=== PATIENT | female | born 1985 | race Caucasian/White ===

== ENCOUNTER 2016-03-14 11:42 | Emergency (ER) | payer OTHER ==
[~2016-03-14] VITALS: Ht 149.9 cm; Wt 100.0 kg
[~2016-03-14 11:42] MED LIST: ADVAIR 100-501 EACH IH; ADVAIR 100/501 DISK IH; ADVAIR 250/501 DISK IH; ADVAIR 500/501 DISK IH; ADVIL200 MG PO; ALBUTEROL17 GM IH; AMBIEN10 M1 PO; AMBIEN10 MG PO; AMBIEN5 MG PO; ANTIVERT25 MG PO; ASPIR 8181 M1 PO; ASPIRIN EC325 MG PO; ATARAX,VISTARIL25 MG PO; ATARAX10 MG; AUGMENTIN875 MG PO; AZITHROMYCIN250 MG PO; Ascorbic Acid,Ester- PO; BENTYL; BENTYL10 MG PO; BUSPAR; BUSPAR10 MG PO; Buspar PO; CALAN120 MG PO; CATAPRES0.1 MG PO; CELEBREX100 MG PO; CHLORTHALIDONE25 MG PO; CITALOPRAM HBR20 M1 PO; CLARITIN10 M3 PO; CLONIDINE HCL0.1 MG PO; CYCLOBENZAPRINE10 MG PO; CYCLOBENZAPRINE5 M1; CYMBALTA20 MG PO; CYMBALTA60 MG PO; Calan PO; DELTASONE20 M1 PO; DESYREL100 MG; DESYREL100 MG PO; DEXILANT60 MG PO; DITROPAN; DITROPAN XL10 MG PO; DITROPAN XL15 MG PO; DITROPAN XL5 MG PO; DITROPAN5 MG; DITROPAN5 MG PO; DOXYCYCLINE HY100 MG PO; Desyrel PO; Ditropan PO; EFFEXOR; EFFEXOR XR37.5 MG PO; EFFEXOR37.5 MG PO; ELIMITE 5% CREA60 GM TP; ESCITALOPRAM OX10 MG PO; Effexor XR PO; FIORICET,ESG1 TABLET PO; FISH OIL; FISH OIL 1,0001 EAC8 PO; FISH OIL SOFTG1 EAC2 PO; FLEXERIL10 MG PO; FLONASE ALLERG9.9 ML BOTH NARES; FLONASE16 G1 BOTH NARES; FLONASE16 G1 NS; FLONASE16 GM NS; FLORASTOR250 MG PO; FLUOXETINE HCL10 MG PO; FLUOXETINE HCL20 M1 PO; FLUOXETINE HCL40 MG PO; FUROSEMIDE20 MG PO; Feosol PO; GABAPENTIN300 MG PO; GLUCOPHAGE500 MG PO; HYDROCHLOROTH12.5 M3 PO; HYDROCODON-ACE1 EAC7 PO; HYDROXYZINE HCL10 M1 PO; HYDROXYZINE HCL25 MG PO; HYDROXYZINE PAM25 MG PO; HYGROTON25 MG PO; IBUPROFEN600 MG PO; IMITREX; IMITREX100 MG PO; IMITREX4 MG/0.5 M SQ; IMITREX6 MG/0.52 SC; IRON PO; K-DUR20 MEQ PO; KEFLEX500 MG PO; KLOR-CON M2020 MEQ PO; KRISTALOSE10 GM PO; LANSOPRAZOLE30 MG PO; LASIX20 MG PO; LATUDA40 MG PO; LEVO-T25 MCG PO; LIDOCAINE700 MG TD; LISINOPRIL5 MG PO; LO-DOSE ASPIRIN81 M1 PO; MACROBID100 MG PO; MEDROL DOSEPAK4 MG PO; METFORMIN HCL500 MG PO; MOTRIN800 MG PO; MULTI VITAMIN1 EACH PO; MULTIVITAMIN1 EAC2 PO; MYRBETRIQ25 MG PO; NAPROSYN500 MG PO; NEURONTIN100 MG PO; NEURONTIN300 MG PO; NORCO 5/3251 TABLET PO; OMEPRAZOLE; OMEPRAZOLE20 M2 PO; OMEPRAZOLE20 MG PO; OMEPRAZOLE40 M1 PO; ORTHO CYCLEN1 TABLET PO; ORTHO-CYCLEN1 EACH PO; ORTHOCYCLINE PO; OXYBUTYNIN CHLO10 MG PO; OXYBUTYNIN CHLO15 MG PO; OXYCODONE HCL5 MG PO; Ortho Cyclen 28 PO; PERCOCET 5/31 TABLET PO; PERPHENAZINE2 MG PO; POTASSIUM CHLO10 ME4 PO; PRAVACHOL20 MG PO; PRAVACHOL40 MG PO; PRAVASTATIN SOD20 MG PO; PREDNISONE10 M1 PO; PREDNISONE10 MG PO; PREDNISONE20 MG PO; PREVACID30 MG PO; PREVIFEM1 EACH PO; PRILOSEC20 MG PO; PRILOSEC40 MG PO; PROMETHAZINE HC25 M1 PO; PROZAC40 MG PO; PriLOSEC PO; QUETIAPINE FUMA50 MG PO; REGLAN10 MG PO; RISPERDAL1 MG PO; SEROQUEL XR150 MG PO; SEROQUEL XR200 MG PO; SEROQUEL XR400 MG PO; SEROQUEL200 MG PO; SEROQUEL300 MG PO; SEROQUEL50 MG PO; SERTRALINE HCL50 MG PO; SINGULAIR10 MG PO; SPRINTEC1 EACH PO; SUMATRIPTAN SU100 MG PO; TESSALON PERLE100 MG PO; TOPAMAX; TOPAMAX50 MG PO; TRAZADONE; TRAZODONE HCL150 MG PO; TRI-PREVIFEM1 EACH PO; TRILAFON2 MG PO; TYLENOL WITH C1 EACH PO; Tylenol Regular Stre PO; ULTRAM50 MG PO; VALIUM5 MG PO; VENTOLIN HFA18 GM IH; VENTOLIN17 GM IH; VERAPAMIL; VERAPAMIL HCL120 M2 PO; VERAPAMIL HCL120 MG PO; VERAPAMIL HCL40 MG; VERAPAMIL HCL80 MG; VERAPAMIL HCL80 MG PO; VERELAN 120 MG120 MG PO; VIIBRYD10 MG PO; VIIBRYD40 MG PO; VITAMIN B12-FO1 EACH PO; VITAMIN C500 M1 PO; VITAMIN D250000 UNIT PO; ZANTAC150 MG PO; ZANTAC300 MG PO; ZITHROMAX Z-PA250 MG PO; ZITHROMAX250 MG PO; ZOFRAN ODT4 MG PO; ZOFRAN4 MG PO; ZOLOFT25 MG PO; ZOLOFT50 MG PO
[2016-03-14 13:15] LABS: HEMATOCRIT 33.4 % (36.0-46.0); MCH 23.8 PG (29.0-34.0); MCHC 32.3 G/DL (30.0-36.0); MCV 73.7 FL (83-99); MEAN PLAT.VOLUME 10.4 uM^3 (9.5-12.4); PLATELET COUNT 383 K/uL (156-360); RBC DIS.WIDTH-CV 14.2 % (11.8-14.6); RBC DIS.WIDTH-SD 37.7 % (39-53); RED BLOOD COUNT 4.53 M/uL (3.80-5.20); WHITE BLOOD COUNT 5.6 K/uL (4.1-10.2)
[2016-03-14 13:24] LABS: CHLORIDE 102 mEq/L (99-109); POTASSIUM 3.9 mEq/L (3.7-5.4); SODIUM 138 mEq/L (136-147)
[2016-03-14 13:25] LABS: GLUCOSE 170 mg/dL (70-99)
[2016-03-14 13:27] LABS: ANION GAP 12 MEQ/L (2-14)
[2016-03-14 13:29] LABS: GFR ESTIMATE (CALCULATED) > 59 mL/min/
[2016-03-14 13:30] LABS: UREA NITROGEN (BUN) 10 mg/dL (9-23)
[2016-03-14] MEDS ORDERED: PROAIR HFA8.5 GM IH (14:46)
[2016-03-14] MEDS ORDERED: ZITHROMAX500 MG PO (14:46)
[2016-03-14] MEDS ORDERED: ROBITUSSIN AC,T10 ML PO (14:46)
[2016-03-14 15:27] VITALS: BP 112/66
== END 2016-03-14 15:28 | disposition home or self-care (01) ==
LOC: EME 11:42
DX: J20.9 Acute bronchitis, unspecified (principal); J06.9 Acute upper respiratory infection, unspecified; J45.909 Unspecified asthma, uncomplicated; G89.29 Other chronic pain; E11.9 Type 2 diabetes mellitus without complications; E78.5 Hyperlipidemia, unspecified; I10 Essential (primary) hypertension; K21.9 Gastro-esophageal reflux disease without esophagitis; Z87.442 Personal history of urinary calculi; G80.9 Cerebral palsy, unspecified; Z87.891 Personal history of nicotine dependence
CPT/HCPCS: 71020; 80048; 85027; 94640; 99281; 99285; J7512

== ENCOUNTER 2016-04-05 01:32 | Emergency (ER) | payer OTHER ==
[~2016-04-05] VITALS: Ht 149.9 cm; Wt 102.8 kg
[~2016-04-05 01:32] MED LIST changes: +PROAIR HFA8.5 GM IH; +ROBITUSSIN AC,T10 ML PO; +ZITHROMAX500 MG PO
[2016-04-05 01:39] VITALS: BP 117/72
[2016-04-05] MEDS ORDERED: ULTRACET1 TABLET PO (02:14)
== END 2016-04-05 02:33 | disposition home or self-care (01) ==
LOC: EXP 01:32 → EME 01:32 → EXP 02:33
DX: G89.29 Other chronic pain (principal); M79.604 Pain in right leg; M79.605 Pain in left leg; M79.89 Other specified soft tissue disorders; I10 Essential (primary) hypertension; J45.909 Unspecified asthma, uncomplicated; Z79.82 Long term (current) use of aspirin
CPT/HCPCS: 99281; 99283

== ENCOUNTER 2016-04-21 03:42 | Emergency (ER) | payer OTHER ==
[~2016-04-21] VITALS: Ht 149.9 cm; Wt 102.6 kg
[~2016-04-21 03:42] MED LIST changes: +ULTRACET1 TABLET PO
[2016-04-21] MEDS ORDERED: FLEXERIL10 MG PO (04:27)
[2016-04-21] MEDS ORDERED: NORCO 5/3251 TABLET PO (04:27)
[2016-04-21 05:02] VITALS: BP 136/78
== END 2016-04-21 05:03 | disposition home or self-care (01) ==
LOC: EME 03:42
DX: S76.911A Strain of unspecified muscles, fascia and tendons at thigh level, right thigh, initial encounter (principal); S76.912A Strain of unspecified muscles, fascia and tendons at thigh level, left thigh, initial encounter; W05.0XXA Fall from non-moving wheelchair, initial encounter; G80.9 Cerebral palsy, unspecified; Z99.3 Dependence on wheelchair; I10 Essential (primary) hypertension; E78.5 Hyperlipidemia, unspecified; J45.909 Unspecified asthma, uncomplicated; Z79.82 Long term (current) use of aspirin
CPT/HCPCS: 99281; 99283

== ENCOUNTER 2016-05-08 23:22 | Inpatient (IN) | payer OTHER ==
[~2016-05-08] VITALS: Ht 149.9 cm; Wt 99.4 kg
[2016-05-09 00:13] LABS: HEMATOCRIT 32.7 % (36.0-46.0); MCH 23.7 PG (29.0-34.0); MCHC 31.5 G/DL (30.0-36.0); MCV 75.2 FL (83-99); MEAN PLAT.VOLUME 10.4 uM^3 (9.5-12.4); PLATELET COUNT 397 K/uL (156-360); RBC DIS.WIDTH-CV 15.6 % (11.8-14.6); RBC DIS.WIDTH-SD 41.7 % (39-53); RED BLOOD COUNT 4.35 M/uL (3.80-5.20); WHITE BLOOD COUNT 9.4 K/uL (4.1-10.2)
[2016-05-09 00:20] LABS: CHLORIDE 104 mEq/L (99-109); POTASSIUM 3.5 mEq/L (3.7-5.4); SODIUM 139 mEq/L (136-147)
[2016-05-09 00:23] LABS: GLUCOSE 198 mg/dL (70-99)
[2016-05-09 00:24] LABS: ANION GAP 9 MEQ/L (2-14)
[2016-05-09 00:25] LABS: TOTAL BILIRUBIN 0.2 mg/dL (0.0-1.0)
[2016-05-09 00:26] LABS: ALKALINE PHOSPHATASE 147 IU/L (3-129); GFR ESTIMATE (CALCULATED) > 59 mL/min/
[2016-05-09 00:27] LABS: UREA NITROGEN (BUN) 11 mg/dL (9-23)
[2016-05-09 00:30] LABS: LIPASE 18 U/L (1.0-51.0)
[2016-05-09 00:33] LABS: TROP-I INTERPRETATION NEGATIVE; TROPONIN-I < 0.01 ng/mL (0.0-0.30)
[2016-05-09 00:35] LABS: QUANTITATIVE HCG < 4.0 MIU/ML
[2016-05-09 01:00] LABS: D-DIMER ELISA 0.72 mg/L FEU (< 0.57)
[2016-05-09 01:05] LABS: INFLUENZA A VIRAL ANTIGEN NEGATIVE; INFLUENZA B VIRAL ANTIGEN NEGATIVE
[2016-05-09 07:17] LABS: POINT-OF-CARE METER ID UU14100415
[2016-05-09 07:20] LABS: HEMATOCRIT 30.7 % (36.0-46.0); MCH 23.9 PG (29.0-34.0); MCHC 31.9 G/DL (30.0-36.0); MCV 74.9 FL (83-99); MEAN PLAT.VOLUME 10.2 uM^3 (9.5-12.4); PLATELET COUNT 380 K/uL (156-360); RBC DIS.WIDTH-CV 15.4 % (11.8-14.6); RBC DIS.WIDTH-SD 40.7 % (39-53); WHITE BLOOD COUNT 9.9 K/uL (4.1-10.2)
[2016-05-09 07:23] LABS: EOSINOPHIL (%) 1.6 % (0-5); EOSINOPHIL COUNT 0.2 K/uL (0-0.3); IMMATURE GRANULOCYTE (%) 0.6 % (0.0-0.7); IMMATURE GRANULOCYTE COUNT 0.6 K/uL; MONOCYTE (%) 7.6 % (3-12); MONOCYTE COUNT 0.8 K/uL (0-0.8); NEUTROPHIL (%) 60.1 % (45-76)
[2016-05-09 07:42] LABS: INTERNAL CONTROL VALID? YES
[2016-05-09 07:53] LABS: ANION GAP 7 MEQ/L (2-14); CHLORIDE 105 MEQ/L (99-109); GFR ESTIMATE (CALCULATED) > 59 mL/min/; POTASSIUM 4.1 MEQ/L (3.7-5.4); SAMPLE HEMOLYSIS CHECK 0; SAMPLE ICTERIC CHECK 0; SAMPLE LIPEMIA CHECK 0; SODIUM 139 MEQ/L (136-147); UREA NITROGEN (BUN) 12 mg/dL (9-23)
[2016-05-09 08:08] LABS: TROP-I INTERPRETATION NEGATIVE; TROPONIN-I < 0.01 ng/mL (0.0-0.30)
[2016-05-09 08:09] LABS: GLUCOSE 114 mg/dL (70-99)
[2016-05-09 08:42] LABS: Estimated Average Glucose 163 mg/dL (70-123); HEMOGLOBIN A1c (GLYCOHEMOGLOB) 7.3 % HGB (Below 5.7)
[2016-05-09] MEDS ORDERED: DITROPAN XL10 MG PO (11:31)
[2016-05-09] MEDS ORDERED: ALL DAY ALLERGY10 M3 PO (11:35)
[2016-05-09] MEDS ORDERED: DESYREL100 MG PO (11:40)
[2016-05-09] MEDS ORDERED: SUPER B-50 COM1 EACH PO (11:41)
[2016-05-09] MEDS ORDERED: TRADJENTA5 MG PO (11:44)
[2016-05-09] MEDS ORDERED: SINEQUAN10 MG PO (11:46)
[2016-05-09 12:13] LABS: POINT-OF-CARE METER ID UU14100415
[2016-05-09 12:21] LABS: TROP-I INTERPRETATION NEGATIVE; TROPONIN-I < 0.01 ng/mL (0.0-0.30)
[2016-05-09 16:52] LABS: POINT-OF-CARE METER ID UU13113702
[2016-05-09 18:45] VITALS: BP 116/59
[2016-05-09 22:48] VITALS: BP 101/58
[2016-05-10 06:35] LABS: MCH 24.2 PG (29.0-34.0); MCV 75.8 FL (83-99); MEAN PLAT.VOLUME 10.6 uM^3 (9.5-12.4); PLATELET COUNT 365 K/uL (156-360); RBC DIS.WIDTH-CV 15.5 % (11.8-14.6); RBC DIS.WIDTH-SD 42.8 % (39-53); RED BLOOD COUNT 3.96 M/uL (3.80-5.20)
[2016-05-10 07:45] VITALS: BP 119/78
[2016-05-10 17:05] VITALS: BP 133/85
[2016-05-10 21:00] LABS: POINT-OF-CARE METER ID UU13113725
[2016-05-10 23:31] VITALS: BP 118/61
[2016-05-11 07:40] VITALS: BP 130/84
[2016-05-11] MEDS ORDERED: CEFDINIR300 MG PO (09:56)
[2016-05-11] MEDS ORDERED: MUCINEX600 MG PO (09:57)
[2016-05-11 11:38] LABS: POINT-OF-CARE METER ID UU13113725
== END 2016-05-11 14:14 | disposition home or self-care (01) | DRG 194 ==
LOC: EME → EDBD 23:22 → EME 23:22 → EDOF 05-09 02:46 → 5EAST 05-09 02:46
PROVIDERS: Emergency Medicine; Hospitalist; Internal Medicine; Nurse Practitioner Adult Health
DX: J18.9 Pneumonia, unspecified organism (principal); Z68.41 Body mass index [BMI] 40.0-44.9, adult; G80.9 Cerebral palsy, unspecified; E87.6 Hypokalemia; E11.9 Type 2 diabetes mellitus without complications; E03.9 Hypothyroidism, unspecified; F25.9 Schizoaffective disorder, unspecified; E66.01 Morbid (severe) obesity due to excess calories; Z79.52 Long term (current) use of systemic steroids; F31.9 Bipolar disorder, unspecified; E78.00 Pure hypercholesterolemia, unspecified; K21.9 Gastro-esophageal reflux disease without esophagitis; R26.2 Difficulty in walking, not elsewhere classified; Z99.3 Dependence on wheelchair
CPT/HCPCS: 71010; 71275; 78582; 80048; 80053; 82948; 83036; 83605; 83690; 84484; 84702; 85025; 85027; 85379; 87040; 87070; 87205; 87449; 87502; 93005; 94640; 94640 76; 99202; 99281; 99285; A9540; A9567; J0456; J0696; J1650; J1815; J7030; J7050; J7512; Q0177

== ENCOUNTER 2016-05-24 00:10 | Emergency (ER) | payer OTHER ==
[~2016-05-24] VITALS: Ht 149.9 cm; Wt 100.0 kg
[~2016-05-24 00:10] MED LIST changes: +ALL DAY ALLERGY10 M3 PO; +CEFDINIR300 MG PO; +MUCINEX600 MG PO; +SINEQUAN10 MG PO; +SUPER B-50 COM1 EACH PO; +TRADJENTA5 MG PO
[2016-05-24 00:36] LABS: POINT-OF-CARE METER ID UU13113778
[2016-05-24 01:26] LABS: HEMATOCRIT 33.2 % (36.0-46.0); MCH 23.4 PG (29.0-34.0); MCHC 30.4 G/DL (30.0-36.0); MCV 76.9 FL (83-99); MEAN PLAT.VOLUME 10.9 uM^3 (9.5-12.4); PLATELET COUNT 363 K/uL (156-360); RBC DIS.WIDTH-CV 15.3 % (11.8-14.6); RBC DIS.WIDTH-SD 42.4 % (39-53); RED BLOOD COUNT 4.32 M/uL (3.80-5.20); WHITE BLOOD COUNT 9.2 K/uL (4.1-10.2)
[2016-05-24 01:28] LABS: POINT-OF-CARE METER ID UU14100415
[2016-05-24 01:30] LABS: CHLORIDE 104 mEq/L (99-109); SODIUM 138 mEq/L (136-147)
[2016-05-24 01:33] LABS: GLUCOSE 179 mg/dL (70-99)
[2016-05-24 01:34] LABS: ANION GAP 9 MEQ/L (2-14); TOTAL BILIRUBIN 0.3 mg/dL (0.0-1.0)
[2016-05-24 01:36] LABS: ALKALINE PHOSPHATASE 127 IU/L (3-129); GFR ESTIMATE (CALCULATED) > 59 mL/min/
[2016-05-24 01:37] LABS: UREA NITROGEN (BUN) 9 mg/dL (9-23)
[2016-05-24 01:38] LABS: DIRECT BILIRUBIN 0.1 mg/dL (0.0-0.3)
[2016-05-24 01:40] LABS: LIPASE 18 U/L (1.0-51.0)
[2016-05-24] MEDS ORDERED: METHADONE H5 MG/5 ML PO (02:55)
[2016-05-24] MEDS ORDERED: SEROQUEL400 MG PO (02:57)
[2016-05-24] MEDS ORDERED: SEROQUEL200 MG PO (02:57)
[2016-05-24] MEDS ORDERED: OXCARBAZEPINE300 MG PO (03:00)
[2016-05-24] MEDS ORDERED: AMBIEN10 MG PO (03:00)
[2016-05-24] MEDS ORDERED: ADDERALL30 MG PO (03:00)
[2016-05-24] MEDS ORDERED: ELIQUIS5 MG PO (03:01)
[2016-05-24] MEDS ORDERED: LYRICA100 MG PO (03:01)
[2016-05-24] MEDS ORDERED: NOVOLOG 10100 UNITS/ SC (03:02)
[2016-05-24] MEDS ORDERED: METHOTREXATE2.5 MG PO (03:03)
[2016-05-24] MEDS ORDERED: ATORVASTATIN CA80 MG PO (03:04)
[2016-05-24] MEDS ORDERED: LANTUS 10100 UNITS/ SC (03:04)
[2016-05-24] MEDS ORDERED: LISINOPRIL5 MG PO (03:06)
[2016-05-24 03:33] LABS: ADD MIUA? YES; BILIRUBIN NEGATIVE; BLOOD NEGATIVE; COLOR YELLOW ((YELLOW)); GLUCOSE (STRIP) >=500; KETONES NEGATIVE; LEUKOCYTES NEGATIVE; NITRITE NEGATIVE; PROTEIN (STRIP) NEGATIVE; SPECIFIC GRAVITY 1.014 (1.000-1.030); UROBILINOGEN 0.2 MG/DL (0.2-1.0)
[2016-05-24 03:42] LABS: BACTERIA RARE /HPF; BUDDING YEAST 1+; EPITHELIAL CELLS 1+ /HPF; MUCUS TRACE /LPF; UCUL ADDED? NO; UNCLASSIFIED CRYSTALS 1+ /HPF; WHITE BLOOD CELLS 0-5 /HPF (0-5)
[2016-05-24 04:38] VITALS: BP 117/85
[2016-05-24 08:09] LABS: Estimated Average Glucose 169 mg/dL (70-123); HEMOGLOBIN A1c (GLYCOHEMOGLOB) 7.5 % HGB (Below 5.7)
== END 2016-05-24 04:41 | disposition home or self-care (01) ==
LOC: EME 00:10
PROVIDERS: Emergency Medicine
DX: E11.65 Type 2 diabetes mellitus with hyperglycemia (principal); R51 Headache; H53.8 Other visual disturbances; I10 Essential (primary) hypertension; E78.5 Hyperlipidemia, unspecified; J45.909 Unspecified asthma, uncomplicated; G89.29 Other chronic pain; Z79.4 Long term (current) use of insulin; Z79.891 Long term (current) use of opiate analgesic; Z79.82 Long term (current) use of aspirin; Z79.01 Long term (current) use of anticoagulants; Z87.891 Personal history of nicotine dependence
CPT/HCPCS: 80048; 80076; 81003; 82948; 83036; 83690; 85027; 86900; 86901; 87077; 87086; 87186; 99281; 99285; J7030

== ENCOUNTER 2016-06-20 23:48 | Emergency (ER) | payer OTHER ==
[~2016-06-20] VITALS: Ht 149.9 cm; Wt 103.6 kg
[~2016-06-20 23:48] MED LIST changes: +ADDERALL30 MG PO; +ATORVASTATIN CA80 MG PO; +ELIQUIS5 MG PO; +LANTUS 10100 UNITS/ SC; +LYRICA100 MG PO; +METHADONE H5 MG/5 ML PO; +METHOTREXATE2.5 MG PO; +NOVOLOG 10100 UNITS/ SC; +OXCARBAZEPINE300 MG PO; +SEROQUEL400 MG PO
[2016-06-21 00:48] LABS: HEMATOCRIT 34.3 % (36.0-46.0); MCH 23.5 PG (29.0-34.0); MCHC 30.9 G/DL (30.0-36.0); MCV 75.9 FL (83-99); MEAN PLAT.VOLUME 10.3 uM^3 (9.5-12.4); PLATELET COUNT 427 K/uL (156-360); RBC DIS.WIDTH-CV 14.8 % (11.8-14.6); RBC DIS.WIDTH-SD 40.3 % (39-53); RED BLOOD COUNT 4.52 M/uL (3.80-5.20); WHITE BLOOD COUNT 8.2 K/uL (4.1-10.2)
[2016-06-21 01:00] LABS: ADD MIUA? NO; BILIRUBIN NEGATIVE; BLOOD NEGATIVE; COLOR STRAW ((YELLOW)); GLUCOSE (STRIP) NEGATIVE; KETONES NEGATIVE; LEUKOCYTES NEGATIVE; NITRITE NEGATIVE; PROTEIN (STRIP) NEGATIVE; SPECIFIC GRAVITY 1.002 (1.000-1.030); UCUL ADDED? NO; UROBILINOGEN 0.2 MG/DL (0.2-1.0)
[2016-06-21 01:02] LABS: CHLORIDE 104 mEq/L (99-109); POTASSIUM 4.1 mEq/L (3.7-5.4); SODIUM 139 mEq/L (136-147)
[2016-06-21 01:04] LABS: GLUCOSE 164 mg/dL (70-99)
[2016-06-21 01:06] LABS: ANION GAP 10 MEQ/L (2-14); TOTAL BILIRUBIN 0.2 mg/dL (0.0-1.0)
[2016-06-21 01:08] LABS: ALKALINE PHOSPHATASE 112 IU/L (3-129); GFR ESTIMATE (CALCULATED) > 59 mL/min/
[2016-06-21 01:09] LABS: UREA NITROGEN (BUN) 13 mg/dL (9-23)
[2016-06-21 01:18] LABS: QUANTITATIVE HCG < 4.0 MIU/ML
[2016-06-21] MEDS ORDERED: ZOFRAN8 MG PO (01:41)
[2016-06-21] MEDS ORDERED: BENTYL20 MG PO (01:41)
[2016-06-21 02:06] VITALS: BP 120/75
== END 2016-06-21 02:07 | disposition home or self-care (01) ==
LOC: EME 23:48
DX: R10.84 Generalized abdominal pain (principal); E11.9 Type 2 diabetes mellitus without complications; Z79.4 Long term (current) use of insulin; E78.5 Hyperlipidemia, unspecified; J45.909 Unspecified asthma, uncomplicated; I10 Essential (primary) hypertension; Z87.442 Personal history of urinary calculi; G89.29 Other chronic pain; G80.9 Cerebral palsy, unspecified; Z91.040 Latex allergy status; Z88.1 Allergy status to other antibiotic agents; Z88.2 Allergy status to sulfonamides; Z88.5 Allergy status to narcotic agent; Z88.6 Allergy status to analgesic agent; Z91.048 Other nonmedicinal substance allergy status; Z87.891 Personal history of nicotine dependence
CPT/HCPCS: 80053; 81003; 84702; 85027; 99281; 99284

== ENCOUNTER 2016-07-06 21:18 | Emergency (ER) | payer OTHER ==
[~2016-07-06] VITALS: Ht 149.9 cm; Wt 95.4 kg
[~2016-07-06 21:18] MED LIST changes: +BENTYL20 MG PO; +ZOFRAN8 MG PO
[2016-07-06 21:38] LABS: POINT-OF-CARE METER ID UU14100415
[2016-07-06 22:45] LABS: INFLUENZA A VIRAL ANTIGEN NEGATIVE; INFLUENZA B VIRAL ANTIGEN NEGATIVE
[2016-07-06 22:49] LABS: ADD MIUA? YES; BILIRUBIN NEGATIVE; BLOOD NEGATIVE; GLUCOSE (STRIP) NEGATIVE; KETONES NEGATIVE; LEUKOCYTES NEGATIVE; NITRITE NEGATIVE; PROTEIN (STRIP) 100; SPECIFIC GRAVITY 1.034 (1.000-1.030); UROBILINOGEN 0.2 MG/DL (0.2-1.0)
[2016-07-06 22:51] LABS: CHLORIDE 103 mEq/L (99-109); EOSINOPHIL (%) 1.2 % (0-5); EOSINOPHIL COUNT 0.1 K/uL (0-0.3); HEMATOCRIT 32.9 % (36.0-46.0); IMMATURE GRANULOCYTE (%) 0.8 % (0.0-0.7); IMMATURE GRANULOCYTE COUNT 0.1 K/uL; INSTRUMENT ABS NEUTROPHIL CT 4.1 K/uL; LYMPHOCYTE COUNT 2.8 K/uL (1.0-2.8); MCH 23.1 PG (29.0-34.0); MCV 74.6 FL (83-99); MEAN PLAT.VOLUME 10.3 uM^3 (9.5-12.4); MONOCYTE (%) 7.4 % (3-12); MONOCYTE COUNT 0.6 K/uL (0-0.8); NEUTROPHIL (%) 53.6 % (45-76); NEUTROPHIL COUNT 4.1 K/uL (1.8-6.4); PLATELET COUNT 434 K/uL (156-360); POTASSIUM 3.8 mEq/L (3.7-5.4); RBC DIS.WIDTH-CV 14.6 % (11.8-14.6); RED BLOOD COUNT 4.41 M/uL (3.80-5.20); SODIUM 138 mEq/L (136-147); WHITE BLOOD COUNT 7.6 K/uL (4.1-10.2)
[2016-07-06 22:53] LABS: GLUCOSE 146 mg/dL (70-99)
[2016-07-06 22:54] LABS: ANION GAP 10 MEQ/L (2-14)
[2016-07-06 22:55] LABS: TOTAL BILIRUBIN 0.2 mg/dL (0.0-1.0)
[2016-07-06 22:57] LABS: ALKALINE PHOSPHATASE 129 IU/L (3-129); GFR ESTIMATE (CALCULATED) > 59 mL/min/
[2016-07-06 22:58] LABS: UREA NITROGEN (BUN) 15 mg/dL (9-23)
[2016-07-06 22:59] LABS: BACTERIA RARE /HPF; EPITHELIAL CELLS 1+ /HPF; MUCUS TRACE /LPF; RED BLOOD CELLS 0-5 /HPF (0-5); UCUL ADDED? NO; WHITE BLOOD CELLS 0-5 /HPF (0-5)
[2016-07-06 23:00] LABS: LIPASE 12 U/L (1.0-51.0)
[2016-07-06 23:03] LABS: TROP-I INTERPRETATION NEGATIVE; TROPONIN-I < 0.01 ng/mL (0.0-0.30)
[2016-07-06 23:03] LABS: COLOR DK YELLOW ((YELLOW))
[2016-07-07 03:12] VITALS: BP 130/75
== END 2016-07-07 03:13 | disposition home or self-care (01) ==
LOC: EME 21:18
PROVIDERS: Emergency Medicine
DX: E86.0 Dehydration (principal); R10.12 Left upper quadrant pain; R53.1 Weakness; R06.02 Shortness of breath; R05 Cough; I10 Essential (primary) hypertension; E78.5 Hyperlipidemia, unspecified; E11.9 Type 2 diabetes mellitus without complications; Z79.4 Long term (current) use of insulin; Z79.01 Long term (current) use of anticoagulants; Z87.891 Personal history of nicotine dependence; R00.0 Tachycardia, unspecified; R79.1 Abnormal coagulation profile
CPT/HCPCS: 71020; 71275; 74177; 80053; 81003; 82948; 83605; 83690; 84484; 85025; 85379; 87040; 87502; 93005; 99281; 99285; J7030

== ENCOUNTER 2016-07-18 22:22 | Emergency (ER) | payer OTHER ==
[~2016-07-18] VITALS: Ht 149.9 cm; Wt 102.2 kg
[2016-07-18 23:20] LABS: CHLORIDE 104 mEq/L (99-109); POTASSIUM 3.3 mEq/L (3.7-5.4); SODIUM 138 mEq/L (136-147)
[2016-07-18 23:22] LABS: GLUCOSE 209 mg/dL (70-99)
[2016-07-18 23:23] LABS: ANION GAP 12 MEQ/L (2-14)
[2016-07-18 23:24] LABS: TOTAL BILIRUBIN 0.3 mg/dL (0.0-1.0)
[2016-07-18 23:25] LABS: ALKALINE PHOSPHATASE 130 IU/L (3-129)
[2016-07-18 23:26] LABS: GFR ESTIMATE (CALCULATED) > 59 mL/min/
[2016-07-18 23:27] LABS: UREA NITROGEN (BUN) 13 mg/dL (9-23)
[2016-07-18 23:29] LABS: LIPASE 10 U/L (1.0-51.0)
[2016-07-18 23:35] LABS: HEMATOCRIT 33.3 % (36.0-46.0); MCH 23.1 PG (29.0-34.0); MCHC 30.9 G/DL (30.0-36.0); MCV 74.7 FL (83-99); MEAN PLAT.VOLUME 10.5 uM^3 (9.5-12.4); PLATELET COUNT 403 K/uL (156-360); QUANTITATIVE HCG < 4.0 MIU/ML; RBC DIS.WIDTH-CV 14.7 % (11.8-14.6); RBC DIS.WIDTH-SD 39.6 % (39-53); RED BLOOD COUNT 4.46 M/uL (3.80-5.20); WHITE BLOOD COUNT 8.2 K/uL (4.1-10.2)
[2016-07-19] MEDS ORDERED: ZOFRAN ODT4 MG PO (01:43)
[2016-07-19 02:49] VITALS: BP 123/79
== END 2016-07-19 02:49 | disposition home or self-care (01) ==
LOC: EME 22:22
PROVIDERS: Emergency Medicine
DX: R10.9 Unspecified abdominal pain (principal); R11.2 Nausea with vomiting, unspecified; R19.7 Diarrhea, unspecified; D64.9 Anemia, unspecified; I10 Essential (primary) hypertension; E78.5 Hyperlipidemia, unspecified; E03.9 Hypothyroidism, unspecified; E11.9 Type 2 diabetes mellitus without complications; Z79.4 Long term (current) use of insulin; Z79.01 Long term (current) use of anticoagulants; Z79.891 Long term (current) use of opiate analgesic; Z87.442 Personal history of urinary calculi; Z87.891 Personal history of nicotine dependence
CPT/HCPCS: 74177; 80053; 81003; 83690; 84702; 85027; 93005; 99281; 99285; J1885; J2405; J7030

== ENCOUNTER 2016-07-29 23:22 | Emergency (ER) | payer OTHER ==
[~2016-07-29] VITALS: Ht 149.9 cm; Wt 100.0 kg
[2016-07-30 01:31] LABS: CHLORIDE 105 mEq/L (99-109); POTASSIUM 3.7 mEq/L (3.7-5.4); SODIUM 139 mEq/L (136-147)
[2016-07-30 01:32] LABS: HEMATOCRIT 34.9 % (36.0-46.0); MCH 23.1 PG (29.0-34.0); MCHC 31.5 G/DL (30.0-36.0); MCV 73.3 FL (83-99); MEAN PLAT.VOLUME 10.4 uM^3 (9.5-12.4); PLATELET COUNT 394 K/uL (156-360); RBC DIS.WIDTH-CV 15.1 % (11.8-14.6); RBC DIS.WIDTH-SD 39.8 % (39-53); RED BLOOD COUNT 4.76 M/uL (3.80-5.20); WHITE BLOOD COUNT 8.9 K/uL (4.1-10.2)
[2016-07-30 01:34] LABS: GLUCOSE 143 mg/dL (70-99)
[2016-07-30 01:35] LABS: ANION GAP 11 MEQ/L (2-14)
[2016-07-30 01:36] LABS: TOTAL BILIRUBIN 0.4 mg/dL (0.0-1.0)
[2016-07-30 01:37] LABS: ALKALINE PHOSPHATASE 127 IU/L (3-129)
[2016-07-30 01:38] LABS: GFR ESTIMATE (CALCULATED) > 59 mL/min/
[2016-07-30 01:39] LABS: UREA NITROGEN (BUN) 14 mg/dL (9-23)
[2016-07-30 01:41] LABS: LIPASE 13 U/L (1.0-51.0)
[2016-07-30 01:47] LABS: QUANTITATIVE HCG < 4.0 MIU/ML
[2016-07-30 01:59] LABS: ADD MIUA? YES; BILIRUBIN NEGATIVE; BLOOD LARGE; GLUCOSE (STRIP) NEGATIVE; KETONES 80; LEUKOCYTES MODERATE; NITRITE NEGATIVE; PROTEIN (STRIP) 100; SPECIFIC GRAVITY 1.031 (1.000-1.030); UROBILINOGEN 0.2 MG/DL (0.2-1.0)
[2016-07-30 02:02] LABS: COLOR DK YELLOW ((YELLOW))
[2016-07-30 02:07] LABS: BACTERIA 1+ /HPF; EPITHELIAL CELLS 2+ /HPF; MUCUS TRACE /LPF; RED BLOOD CELLS TNTC /HPF (0-5); WHITE BLOOD CELLS 20-30 /HPF (0-5)
[2016-07-30] MEDS ORDERED: MACROBID100 MG PO (02:41)
[2016-07-30] MEDS ORDERED: ZOFRAN ODT4 MG PO (02:43)
[2016-07-30 02:55] VITALS: BP 130/72
== END 2016-07-30 02:56 | disposition home or self-care (01) ==
LOC: EME 23:22
PROVIDERS: Nurse Practitioner Family
DX: N39.0 Urinary tract infection, site not specified (principal); E11.9 Type 2 diabetes mellitus without complications; R31.9 Hematuria, unspecified; D64.9 Anemia, unspecified; R79.89 Other specified abnormal findings of blood chemistry; R06.02 Shortness of breath; R05 Cough; J45.909 Unspecified asthma, uncomplicated; I10 Essential (primary) hypertension; E78.5 Hyperlipidemia, unspecified; Z87.442 Personal history of urinary calculi; Z79.01 Long term (current) use of anticoagulants; Z79.4 Long term (current) use of insulin; Z87.891 Personal history of nicotine dependence
CPT/HCPCS: 71020; 80053; 81003; 83690; 84702; 85027; 87086; 94640; 99281; 99284

== ENCOUNTER 2016-07-31 23:37 | Emergency (ER) | payer OTHER ==
[~2016-07-31] VITALS: Ht 149.9 cm; Wt 100.7 kg
[2016-08-01 00:44] LABS: HEMATOCRIT 34.2 % (36.0-46.0); MCH 22.9 PG (29.0-34.0); MCHC 30.4 G/DL (30.0-36.0); MCV 75.3 FL (83-99); MEAN PLAT.VOLUME 10.7 uM^3 (9.5-12.4); PLATELET COUNT 381 K/uL (156-360); RBC DIS.WIDTH-CV 15.3 % (11.8-14.6); RBC DIS.WIDTH-SD 41.1 % (39-53); RED BLOOD COUNT 4.54 M/uL (3.80-5.20); WHITE BLOOD COUNT 6.5 K/uL (4.1-10.2)
[2016-08-01 00:54] LABS: CHLORIDE 108 mEq/L (99-109); SODIUM 139 mEq/L (136-147)
[2016-08-01 00:57] LABS: ANION GAP 7 MEQ/L (2-14)
[2016-08-01 00:59] LABS: GFR ESTIMATE (CALCULATED) > 59 mL/min/; SERUM ETHYL ALCOHOL < 10 mg/dL
[2016-08-01 01:01] LABS: UREA NITROGEN (BUN) 10 mg/dL (9-23)
[2016-08-01 01:07] LABS: GLUCOSE 241 mg/dL (70-99)
[2016-08-01 01:09] LABS: QUANTITATIVE HCG < 4.0 MIU/ML
[2016-08-01 01:32] LABS: ADD MIUA? YES; BILIRUBIN NEGATIVE; BLOOD LARGE; COLOR AMBER ((YELLOW)); GLUCOSE (STRIP) >=500; KETONES NEGATIVE; LEUKOCYTES NEGATIVE; NITRITE NEGATIVE; PROTEIN (STRIP) 100; SPECIFIC GRAVITY 1.033 (1.000-1.030); UROBILINOGEN 0.2 MG/DL (0.2-1.0)
[2016-08-01 01:39] LABS: AMPHETAMINE NEGATIVE (500 ng/mL); BARBITURATES NEGATIVE (200 ng/mL); BENZODIAZEPINES PRESUMPTIVE POSITIVE (150 ng/mL); COCAINE NEGATIVE (150 ng/mL); INTERNAL CONTROLS VALID? YES; METHADONE NEGATIVE (200 ng/mL); METHAMPHETAMINE NEGATIVE (500 ng/mL); OPIATES (MORPHINE) NEGATIVE (100 ng/mL); OXYCODONE NEGATIVE (100 ng/mL); PHENCYCLIDINE NEGATIVE (25 ng/mL); PROPOXYPHENE NEGATIVE (300 ng/mL); THC CANNABINOIDS NEGATIVE (50 ng/mL); TRICYCLIC ANTIDEPRESSANTS PRESUMPTIVE POSITIVE (300 ng/mL)
[2016-08-01 01:40] LABS: ADD MEDTOX COMMENT Y
[2016-08-01 01:44] LABS: BACTERIA RARE /HPF; EPITHELIAL CELLS 2+ /HPF; MUCUS TRACE /LPF; UCUL ADDED? NO; WHITE BLOOD CELLS 15-20 /HPF (0-5)
[2016-08-01 03:12] LABS: BENZODIAZEPINES QUANT VALUE 0 NG/ML; BENZODIAZEPINES, URINE SCREEN Negative (200 ng/mL)
[2016-08-01 04:22] VITALS: BP 113/88
== END 2016-08-01 04:05 | disposition home or self-care (01) ==
LOC: EME → EDBD 23:37 → EME 08-01 04:05
PROVIDERS: Emergency Medicine
DX: F32.9 Major depressive disorder, single episode, unspecified (principal); G80.9 Cerebral palsy, unspecified; J45.909 Unspecified asthma, uncomplicated; F31.9 Bipolar disorder, unspecified; E11.9 Type 2 diabetes mellitus without complications; E78.5 Hyperlipidemia, unspecified; I10 Essential (primary) hypertension; K21.9 Gastro-esophageal reflux disease without esophagitis; Z87.442 Personal history of urinary calculi; Z79.4 Long term (current) use of insulin; F17.200 Nicotine dependence, unspecified, uncomplicated
CPT/HCPCS: 80048; 81003; 84702; 84999; 85027; 90837; 99281; 99285; G0480

== ENCOUNTER 2016-08-11 18:52 | Emergency (ER) | payer OTHER ==
[~2016-08-11] VITALS: Ht 149.9 cm; Wt 100.0 kg
[2016-08-11] MEDS ORDERED: QUETIAPINE FUM300 MG PO (19:23)
[2016-08-11] MEDS ORDERED: ALOGLIPTIN12.5 MG PO (19:25)
[2016-08-11] MEDS ORDERED: DOXEPIN HCL10 MG PO (19:27)
[2016-08-11] MEDS ORDERED: RANITIDINE HCL300 MG PO (19:27)
[2016-08-11] MEDS ORDERED: BASAGLAR K100 UNIT/1 SC (19:27)
[2016-08-11] MEDS ORDERED: FLUOXETINE HCL20 MG PO (19:28)
[2016-08-11] MEDS ORDERED: DESYREL300 MG PO (19:28)
[2016-08-11] MEDS ORDERED: HYDROXYZINE PAM25 MG PO (19:28)
[2016-08-11] MEDS ORDERED: BUSPAR15 MG PO (19:29)
[2016-08-11] MEDS ORDERED: MEDROL DOSEPAK4 MG PO (20:53)
[2016-08-11 21:12] VITALS: BP 117/65
== END 2016-08-11 21:12 | disposition home or self-care (01) ==
LOC: EME 18:52
DX: J06.9 Acute upper respiratory infection, unspecified (principal); J45.909 Unspecified asthma, uncomplicated; R51 Headache; Z87.01 Personal history of pneumonia (recurrent); I10 Essential (primary) hypertension; E78.5 Hyperlipidemia, unspecified; E11.9 Type 2 diabetes mellitus without complications; Z79.4 Long term (current) use of insulin; F17.200 Nicotine dependence, unspecified, uncomplicated
CPT/HCPCS: 71020; 99281; 99284

== ENCOUNTER 2016-08-24 00:02 | Emergency (ER) | payer OTHER ==
[~2016-08-24] VITALS: Ht 149.9 cm; Wt 99.8 kg
[~2016-08-24 00:02] MED LIST changes: +ALOGLIPTIN12.5 MG PO; +BASAGLAR K100 UNIT/1 SC; +BUSPAR15 MG PO; +DESYREL300 MG PO; +DOXEPIN HCL10 MG PO; +FLUOXETINE HCL20 MG PO; +QUETIAPINE FUM300 MG PO; +RANITIDINE HCL300 MG PO
[2016-08-24 01:14] LABS: HEMATOCRIT 35.5 % (36.0-46.0); MCH 22.7 PG (29.0-34.0); MCHC 30.1 G/DL (30.0-36.0); MCV 75.4 FL (83-99); MEAN PLAT.VOLUME 10.2 uM^3 (9.5-12.4); PLATELET COUNT 386 K/uL (156-360); RBC DIS.WIDTH-CV 15.7 % (11.8-14.6); RBC DIS.WIDTH-SD 42.6 % (39-53); RED BLOOD COUNT 4.71 M/uL (3.80-5.20); WHITE BLOOD COUNT 7.4 K/uL (4.1-10.2)
[2016-08-24 01:22] LABS: CHLORIDE 104 mEq/L (99-109); POTASSIUM 3.6 mEq/L (3.7-5.4); SODIUM 138 mEq/L (136-147)
[2016-08-24 01:24] LABS: GLUCOSE 140 mg/dL (70-99)
[2016-08-24 01:25] LABS: ANION GAP 10 MEQ/L (2-14)
[2016-08-24 01:28] LABS: GFR ESTIMATE (CALCULATED) > 59 mL/min/
[2016-08-24 01:29] LABS: UREA NITROGEN (BUN) 16 mg/dL (9-23)
[2016-08-24 01:34] LABS: TROP-I INTERPRETATION NEGATIVE; TROPONIN-I < 0.01 ng/mL (0.0-0.30)
[2016-08-24 01:36] LABS: QUANTITATIVE HCG < 4.0 MIU/ML
[2016-08-24 04:02] LABS: TROP-I INTERPRETATION NEGATIVE; TROPONIN-I < 0.01 ng/mL (0.0-0.30)
[2016-08-24 04:37] VITALS: BP 103/86
== END 2016-08-24 05:05 | disposition home or self-care (01) ==
LOC: EME → EDBD 00:02 → EME 00:02
PROVIDERS: Emergency Medicine
DX: R07.9 Chest pain, unspecified (principal); I10 Essential (primary) hypertension; E11.9 Type 2 diabetes mellitus without complications; F31.9 Bipolar disorder, unspecified; G80.9 Cerebral palsy, unspecified; E78.5 Hyperlipidemia, unspecified; J45.909 Unspecified asthma, uncomplicated; K21.9 Gastro-esophageal reflux disease without esophagitis; Z87.442 Personal history of urinary calculi; Z87.891 Personal history of nicotine dependence
CPT/HCPCS: 71010; 80048; 84484; 84702; 85027; 93005; 99281; 99285; J1885

== ENCOUNTER 2016-08-28 01:34 | Emergency (ER) | payer OTHER ==
[~2016-08-28] VITALS: Ht 149.9 cm; Wt 103.6 kg
[2016-08-28 03:50] LABS: CHLORIDE 105 mEq/L (99-109); POTASSIUM 3.6 mEq/L (3.7-5.4); SODIUM 138 mEq/L (136-147)
[2016-08-28 03:53] LABS: GLUCOSE 154 mg/dL (70-99)
[2016-08-28 03:54] LABS: ANION GAP 8 MEQ/L (2-14); MCH 23.1 PG (29.0-34.0); MCHC 30.9 G/DL (30.0-36.0); MCV 74.6 FL (83-99); RBC DIS.WIDTH-CV 15.4 % (11.8-14.6); RBC DIS.WIDTH-SD 41.5 % (39-53); RED BLOOD COUNT 4.29 M/uL (3.80-5.20); TOTAL BILIRUBIN 0.2 mg/dL (0.0-1.0)
[2016-08-28 03:56] LABS: GFR ESTIMATE (CALCULATED) > 59 mL/min/; SERUM ETHYL ALCOHOL < 10 mg/dL
[2016-08-28 03:57] LABS: ALKALINE PHOSPHATASE 129 IU/L (3-129)
[2016-08-28 03:58] LABS: UREA NITROGEN (BUN) 11 mg/dL (9-23)
[2016-08-28 04:00] LABS: SALICYLATE < 5.0 MG/DL (15-30)
[2016-08-28 04:42] LABS: PLAT.SUFFICIENCY ADEQUATE; PLATELET CLUMPS PRESENT - PLATELET COUNT APPEARS ADQ.
[2016-08-28 05:50] VITALS: BP 124/86
[2016-09-02] MEDS ORDERED: PRILOSEC20 MG PO (13:13)
[2016-09-02] MEDS ORDERED: NEURONTIN400 MG PO (13:13)
[2016-09-02] MEDS ORDERED: PRAVACHOL40 MG PO (13:14)
[2016-09-02] MEDS ORDERED: SINGULAIR10 MG PO (13:14)
[2016-09-02] MEDS ORDERED: VERAPAMIL HCL120 M2 PO (13:14)
[2016-09-02] MEDS ORDERED: ZYRTEC10 M3 PO (13:15)
== END 2016-08-28 05:55 | disposition home or self-care (01) ==
LOC: EME → EDBD 01:34 → EME 05:55
PROVIDERS: Emergency Medicine
DX: R45.851 Suicidal ideations (principal); G80.9 Cerebral palsy, unspecified; F32.9 Major depressive disorder, single episode, unspecified; F25.1 Schizoaffective disorder, depressive type; I10 Essential (primary) hypertension; E78.5 Hyperlipidemia, unspecified; E11.9 Type 2 diabetes mellitus without complications; Z79.4 Long term (current) use of insulin; J45.909 Unspecified asthma, uncomplicated; K21.9 Gastro-esophageal reflux disease without esophagitis; Z99.3 Dependence on wheelchair; Z87.891 Personal history of nicotine dependence
CPT/HCPCS: 80053; 85027; 90839; 99281; 99285; G0480

== ENCOUNTER → 2016-09-09 | Outpatient (CLI) | payer OTHER ==
[~2016-09-09] MED LIST changes: +NEURONTIN400 MG PO; +ZYRTEC10 M3 PO
[2016-09-09 10:19] LABS: POINT-OF-CARE METER ID UU14174212
== END | disposition home or self-care (01) ==
LOC: AMB 09:15
PROVIDERS: Internal Medicine
PROC: 0DB68ZX Excision of Stomach, Via Natural or Artificial Opening Endoscopic, Diagnostic (ICD-10-PCS; principal; 2016-09-09)
DX: K29.70 Gastritis, unspecified, without bleeding (principal); I10 Essential (primary) hypertension; J45.909 Unspecified asthma, uncomplicated; E11.9 Type 2 diabetes mellitus without complications; E03.9 Hypothyroidism, unspecified; G80.9 Cerebral palsy, unspecified; F41.8 Other specified anxiety disorders; E66.01 Morbid (severe) obesity due to excess calories; Z68.41 Body mass index [BMI] 40.0-44.9, adult; G47.30 Sleep apnea, unspecified; Z87.891 Personal history of nicotine dependence; Z79.4 Long term (current) use of insulin; Z83.3 Family history of diabetes mellitus; Z82.49 Family history of ischemic heart disease and other diseases of the circulatory system; Z80.3 Family history of malignant neoplasm of breast
CPT/HCPCS: 82948; 88305; 88342 TC

== ENCOUNTER → 2016-10-18 | Outpatient (CLI) | payer OTHER | END | disposition home or self-care (01) | LOC: NUC 09-22 07:00 | DX: K31.84 Gastroparesis (principal) | CPT/HCPCS: 78264; A9541 ==

== ENCOUNTER 2016-11-04 16:55 | Emergency (ER) | payer OTHER ==
[~2016-11-04] VITALS: Ht 149.9 cm; Wt 103.6 kg
[2016-11-04] MEDS ORDERED: KEFLEX500 MG PO (18:33)
[2016-11-04 18:46] VITALS: BP 153/94
== END 2016-11-04 18:47 | disposition home or self-care (01) ==
LOC: EME 16:55
DX: S93.602A Unspecified sprain of left foot, initial encounter (principal); L03.116 Cellulitis of left lower limb; S80.212A Abrasion, left knee, initial encounter; W06.XXXA Fall from bed, initial encounter; Z99.3 Dependence on wheelchair; G80.9 Cerebral palsy, unspecified; K21.9 Gastro-esophageal reflux disease without esophagitis; J45.909 Unspecified asthma, uncomplicated; I10 Essential (primary) hypertension; E78.5 Hyperlipidemia, unspecified; E11.9 Type 2 diabetes mellitus without complications; Z87.442 Personal history of urinary calculi; Z87.891 Personal history of nicotine dependence; Z79.4 Long term (current) use of insulin
CPT/HCPCS: 73630; 99281; 99284

== ENCOUNTER 2016-11-19 01:42 | Emergency (ER) | payer OTHER ==
[~2016-11-19] VITALS: Ht 149.9 cm; Wt 89.0 kg
[2016-11-19 02:58] LABS: MCH 23.1 PG (29.0-34.0); MCHC 30.6 G/DL (30.0-36.0); MCV 75.4 FL (83-99); MEAN PLAT.VOLUME 10.1 uM^3 (9.5-12.4); PLATELET COUNT 366 K/uL (156-360); RBC DIS.WIDTH-CV 15.3 % (11.8-14.6); RBC DIS.WIDTH-SD 41.7 % (39-53); RED BLOOD COUNT 4.51 M/uL (3.80-5.20); WHITE BLOOD COUNT 8.1 K/uL (4.1-10.2)
[2016-11-19 03:10] LABS: CHLORIDE 103 mEq/L (99-109); POTASSIUM 3.5 mEq/L (3.7-5.4); SODIUM 139 mEq/L (136-147)
[2016-11-19 03:11] LABS: GLUCOSE 239 mg/dL (70-99)
[2016-11-19 03:13] LABS: ANION GAP 13 MEQ/L (2-14)
[2016-11-19 03:15] LABS: GFR ESTIMATE (CALCULATED) > 59 mL/min/
[2016-11-19 03:16] LABS: UREA NITROGEN (BUN) 15 mg/dL (9-23)
[2016-11-19 03:24] LABS: TROP-I INTERPRETATION NEGATIVE; TROPONIN-I < 0.01 ng/mL (0.0-0.30)
[2016-11-19] MEDS ORDERED: PROVENTIL HFA6.7 GM IH (03:26)
[2016-11-19] MEDS ORDERED: ZITHROMAX Z-PA250 MG PO (03:26)
[2016-11-19 03:53] VITALS: BP 150/88
== END 2016-11-19 04:02 | disposition home or self-care (01) ==
LOC: EME → EDBD 01:42 → EME 04:02
PROVIDERS: Emergency Medicine
DX: J18.9 Pneumonia, unspecified organism (principal); E11.65 Type 2 diabetes mellitus with hyperglycemia; K21.9 Gastro-esophageal reflux disease without esophagitis; J45.909 Unspecified asthma, uncomplicated; I10 Essential (primary) hypertension; G80.9 Cerebral palsy, unspecified; E78.5 Hyperlipidemia, unspecified; F31.9 Bipolar disorder, unspecified; Z87.442 Personal history of urinary calculi; Z87.891 Personal history of nicotine dependence
CPT/HCPCS: 71020; 80048; 84484; 85027; 93005; 99281; 99284

== ENCOUNTER 2016-12-03 02:31 | Emergency (ER) | payer OTHER ==
[~2016-12-03] VITALS: Ht 149.9 cm; Wt 104.4 kg
[~2016-12-03 02:31] MED LIST changes: +PROVENTIL HFA6.7 GM IH
[2016-12-03 03:59] LABS: HEMATOCRIT 33.8 % (36.0-46.0); MCH 23.1 PG (29.0-34.0); MCHC 30.8 G/DL (30.0-36.0); MCV 75.1 FL (83-99); MEAN PLAT.VOLUME 10.1 uM^3 (9.5-12.4); PLATELET COUNT 374 K/uL (156-360); RBC DIS.WIDTH-CV 15.7 % (11.8-14.6); RBC DIS.WIDTH-SD 42.7 % (39-53); WHITE BLOOD COUNT 7.8 K/uL (4.1-10.2)
[2016-12-03 04:08] LABS: CHLORIDE 103 mEq/L (99-109); SODIUM 140 mEq/L (136-147)
[2016-12-03 04:09] LABS: GLUCOSE 164 mg/dL (70-99)
[2016-12-03 04:11] LABS: ANION GAP 13 MEQ/L (2-14)
[2016-12-03 04:13] LABS: GFR ESTIMATE (CALCULATED) > 59 mL/min/
[2016-12-03 04:14] LABS: UREA NITROGEN (BUN) 13 mg/dL (9-23)
[2016-12-03 04:17] LABS: TROP-I INTERPRETATION NEGATIVE; TROPONIN-I < 0.01 ng/mL (0.0-0.30)
[2016-12-03 05:09] VITALS: BP 100/55
== END 2016-12-03 05:23 | disposition home or self-care (01) ==
LOC: EME 02:31
PROVIDERS: Emergency Medicine
DX: J06.9 Acute upper respiratory infection, unspecified (principal); J45.909 Unspecified asthma, uncomplicated; I10 Essential (primary) hypertension; E78.5 Hyperlipidemia, unspecified; E11.9 Type 2 diabetes mellitus without complications; Z79.4 Long term (current) use of insulin; Z87.891 Personal history of nicotine dependence
CPT/HCPCS: 71020; 80048; 84484; 85027; 93005; 99281; 99284

== ENCOUNTER 2016-12-09 23:57 | Emergency (ER) | payer OTHER ==
[~2016-12-09] VITALS: Ht 149.9 cm; Wt 105.3 kg
[2016-12-10 00:22] LABS: HEMATOCRIT 33.7 % (36.0-46.0); MCH 23.2 PG (29.0-34.0); MCHC 30.9 G/DL (30.0-36.0); MCV 75.2 FL (83-99); MEAN PLAT.VOLUME 10.1 uM^3 (9.5-12.4); PLATELET COUNT 350 K/uL (156-360); RBC DIS.WIDTH-CV 15.3 % (11.8-14.6); RBC DIS.WIDTH-SD 41.9 % (39-53); RED BLOOD COUNT 4.48 M/uL (3.80-5.20); WHITE BLOOD COUNT 9.6 K/uL (4.1-10.2)
[2016-12-10 00:35] LABS: CHLORIDE 103 mEq/L (99-109); POTASSIUM 3.7 mEq/L (3.7-5.4); SODIUM 138 mEq/L (136-147)
[2016-12-10 00:37] LABS: GLUCOSE 133 mg/dL (70-99)
[2016-12-10 00:38] LABS: ANION GAP 8 MEQ/L (2-14)
[2016-12-10 00:40] LABS: GFR ESTIMATE (CALCULATED) > 59 mL/min/
[2016-12-10 00:41] LABS: UREA NITROGEN (BUN) 10 mg/dL (9-23)
[2016-12-10 00:50] LABS: TROP-I INTERPRETATION NEGATIVE; TROPONIN-I < 0.01 ng/mL (0.0-0.30)
[2016-12-10 02:08] LABS: TROP-I INTERPRETATION NEGATIVE; TROPONIN-I 0.01 ng/mL (0.0-0.30)
[2016-12-10 02:50] VITALS: BP 127/61
== END 2016-12-10 03:38 | disposition home or self-care (01) ==
LOC: EME → EDBD 23:57 → EME 12-10 03:38
PROVIDERS: Emergency Medicine
DX: R07.9 Chest pain, unspecified (principal); G80.9 Cerebral palsy, unspecified; K21.9 Gastro-esophageal reflux disease without esophagitis; I10 Essential (primary) hypertension; E11.9 Type 2 diabetes mellitus without complications; E78.5 Hyperlipidemia, unspecified; J45.909 Unspecified asthma, uncomplicated; F41.9 Anxiety disorder, unspecified; F32.9 Major depressive disorder, single episode, unspecified; F31.9 Bipolar disorder, unspecified; F25.9 Schizoaffective disorder, unspecified; Z87.891 Personal history of nicotine dependence; Z87.442 Personal history of urinary calculi; Z91.040 Latex allergy status; Z88.8 Allergy status to other drugs, medicaments and biological substances
CPT/HCPCS: 71020; 80048; 83880; 84484; 85027; 93005; 99281; 99284

== ENCOUNTER 2017-03-11 00:23 | Inpatient (IN) | payer OTHER ==
[~2017-03-11] VITALS: Ht 149.9 cm; Wt 104.0 kg
[~2017-03-11 00:23] MED LIST changes: -FLUOXETINE HCL20 MG PO
[2017-03-11 01:23] LABS: BASOPHIL (%) 0.5 % (0-1); EOSINOPHIL (%) 2.6 % (0-5); EOSINOPHIL COUNT 0.1 K/uL (0-0.3); HEMATOCRIT 40.5 % (36.0-46.0); HEMOGLOBIN 12.3 G/DL (11.9-15.5); IMMATURE GRANULOCYTE (%) 0.7 % (0.0-0.7); LYMPHOCYTE (%) 24.8 % (15-42); LYMPHOCYTE COUNT 1.1 K/uL (1.0-2.8); MCH 23.5 PG (29.0-34.0); MCHC 30.4 G/DL (30.0-36.0); MCV 77.3 FL (83-99); MONOCYTE (%) 12.8 % (3-12); MONOCYTE COUNT 0.5 K/uL (0-0.8); NEUTROPHIL (%) 58.6 % (45-76); NEUTROPHIL COUNT 2.5 K/uL (1.8-6.4); PLATELET COUNT 324 K/uL (156-360); RBC DIS.WIDTH-CV 14.9 % (11.8-14.6); RBC DIS.WIDTH-SD 41.6 % (39-53); RED BLOOD COUNT 5.24 M/uL (3.80-5.20); WHITE BLOOD COUNT 4.2 K/uL (4.1-10.2)
[2017-03-11 01:34] LABS: ALBUMIN 3.8 g/dL (3.2-4.8)
[2017-03-11 01:35] LABS: CHLORIDE 97 mEq/L (99-109); POTASSIUM 4.2 mEq/L (3.7-5.4); SODIUM 136 mEq/L (136-147)
[2017-03-11 01:37] LABS: GLUCOSE 369 mg/dL (70-99); TOTAL PROTEIN 8.6 g/dL (6.4-8.3)
[2017-03-11 01:39] LABS: TOTAL BILIRUBIN 0.2 mg/dL (0.0-1.0)
[2017-03-11 01:40] LABS: ALKALINE PHOSPHATASE 175 IU/L (3-129); CREATININE 1.1 mg/dL (0.6-1.3); GFR ESTIMATE (CALCULATED) > 59 mL/min/
[2017-03-11 01:42] LABS: AST (GOT) 110 IU/L (2-34); UREA NITROGEN (BUN) 12 mg/dL (9-23)
[2017-03-11 01:43] LABS: ALT (GPT) 64 IU/L (3-49)
[2017-03-11] MEDS ORDERED: ZITHROMAX250 MG PO (01:52)
[2017-03-11] MEDS ORDERED: AUGMENTIN875 MG PO (01:52)
[2017-03-11 06:26] LABS: Estimated Average Glucose 220 mg/dL (70-123); HEMOGLOBIN A1c (GLYCOHEMOGLOB) 9.3 % HGB (Below 5.7)
[2017-03-11] MEDS ORDERED: BASAGLAR K100 UNIT/1 SC (08:23)
[2017-03-11] MEDS ORDERED: REGLAN10 MG PO (08:24)
[2017-03-11] MEDS ORDERED: AMBIEN5 MG PO (08:25)
[2017-03-11] MEDS ORDERED: FLONASE16 G1 BOTH NARES (08:28)
[2017-03-11] MEDS ORDERED: SYMBICORT60 INHALA1 IH (08:29)
[2017-03-11 17:57] VITALS: BP 132/61
[2017-03-11 19:33] VITALS: BP 145/62
[2017-03-11 23:26] VITALS: BP 129/71
[2017-03-12 04:34] VITALS: BP 100/60
[2017-03-12 06:00] LABS: ALBUMIN 3.6 G/DL (3.2-4.8); ALKALINE PHOSPHATASE 138 IU/L (3-129); ALT (GPT) 42 IU/L (3-49); AST (GOT) 41 IU/L (2-34); CHLORIDE 103 MEQ/L (99-109); CREATININE 0.7 MG/DL (0.6-1.3); GFR ESTIMATE (CALCULATED) > 59 mL/min/; GLUCOSE 299 mg/dL (70-99); POTASSIUM 4.3 MEQ/L (3.7-5.4); SODIUM 140 MEQ/L (136-147); TOTAL BILIRUBIN 0.2 MG/DL (0.0-1.0); TOTAL PROTEIN 7.1 G/DL (6.4-8.3); UREA NITROGEN (BUN) 11 mg/dL (9-23)
[2017-03-12 06:54] LABS: BASOPHIL (%) 0.3 % (0-1); EOSINOPHIL (%) 0 % (0-5); HEMOGLOBIN 11.1 G/DL (11.9-15.5); IMMATURE GRANULOCYTE (%) 1.2 % (0.0-0.7); LYMPHOCYTE COUNT 0.9 K/uL (1.0-2.8); MCH 23.3 PG (29.0-34.0); MCV 77.6 FL (83-99); MONOCYTE COUNT 0.2 K/uL (0-0.8); NEUTROPHIL (%) 65.5 % (45-76); NEUTROPHIL COUNT 2.2 K/uL (1.8-6.4); PLATELET COUNT 231 K/uL (156-360); RBC DIS.WIDTH-CV 15.1 % (11.8-14.6); RBC DIS.WIDTH-SD 42.3 % (39-53); RED BLOOD COUNT 4.77 M/uL (3.80-5.20); WHITE BLOOD COUNT 3.4 K/uL (4.1-10.2)
[2017-03-12 08:04] VITALS: BP 118/63
[2017-03-12 11:46] VITALS: BP 112/69
[2017-03-12 16:57] VITALS: BP 116/57
[2017-03-12 17:31] LABS: APPEARANCE CLEAR ((CLEAR)); BILIRUBIN NEGATIVE; BLOOD NEGATIVE; COLOR YELLOW ((YELLOW)); GLUCOSE (STRIP) >=500; KETONES 5; LEUKOCYTES NEGATIVE; NITRITE NEGATIVE; PROTEIN (STRIP) 30; SPECIFIC GRAVITY 1.037 (1.000-1.030); UCUL ADDED? NO; UROBILINOGEN 0.2 MG/DL (0.2-1.0)
[2017-03-12 20:06] VITALS: BP 97/50
[2017-03-12 23:41] VITALS: BP 123/60
[2017-03-13 04:05] VITALS: BP 129/78
[2017-03-13 05:59] LABS: BASOPHIL (%) 0.1 % (0-1); EOSINOPHIL (%) 0 % (0-5); HEMATOCRIT 36.8 % (36.0-46.0); HEMOGLOBIN 11.1 G/DL (11.9-15.5); IMMATURE GRANULOCYTE (%) 0.9 % (0.0-0.7); LYMPHOCYTE (%) 17.6 % (15-42); LYMPHOCYTE COUNT 1.5 K/uL (1.0-2.8); MCH 23.4 PG (29.0-34.0); MCHC 30.2 G/DL (30.0-36.0); MCV 77.5 FL (83-99); MONOCYTE (%) 5.5 % (3-12); MONOCYTE COUNT 0.5 K/uL (0-0.8); NEUTROPHIL (%) 75.9 % (45-76); NEUTROPHIL COUNT 6.5 K/uL (1.8-6.4); RBC DIS.WIDTH-CV 15.2 % (11.8-14.6); RBC DIS.WIDTH-SD 42.4 % (39-53); RED BLOOD COUNT 4.75 M/uL (3.80-5.20); WHITE BLOOD COUNT 8.5 K/uL (4.1-10.2)
[2017-03-13 06:02] LABS: PLATELET COUNT 319 K/uL (156-360)
[2017-03-13 06:31] LABS: ALBUMIN 3.5 G/DL (3.2-4.8); ALKALINE PHOSPHATASE 130 IU/L (3-129); ALT (GPT) 34 IU/L (3-49); AST (GOT) 27 IU/L (2-34); CHLORIDE 101 MEQ/L (99-109); CREATININE 0.6 MG/DL (0.6-1.3); GFR ESTIMATE (CALCULATED) > 59 mL/min/; GLUCOSE 268 mg/dL (70-99); POTASSIUM 4.8 MEQ/L (3.7-5.4); SODIUM 138 MEQ/L (136-147); TOTAL BILIRUBIN 0.2 MG/DL (0.0-1.0); TOTAL PROTEIN 6.6 G/DL (6.4-8.3); UREA NITROGEN (BUN) 18 mg/dL (9-23)
[2017-03-13 07:58] VITALS: BP 167/74
[2017-03-13 11:31] VITALS: BP 120/66
[2017-03-13 15:55] VITALS: BP 144/86
[2017-03-13 19:14] VITALS: BP 163/85
[2017-03-13 23:19] VITALS: BP 124/69
[2017-03-14 04:38] VITALS: BP 145/74
[2017-03-14 06:28] LABS: BASOPHIL (%) 0.1 % (0-1); EOSINOPHIL (%) 0 % (0-5); HEMOGLOBIN 10.8 G/DL (11.9-15.5); IMMATURE GRANULOCYTE (%) 1.7 % (0.0-0.7); LYMPHOCYTE (%) 21.9 % (15-42); LYMPHOCYTE COUNT 2.1 K/uL (1.0-2.8); MCH 22.9 PG (29.0-34.0); MCV 76.4 FL (83-99); MONOCYTE (%) 6.4 % (3-12); MONOCYTE COUNT 0.6 K/uL (0-0.8); NEUTROPHIL (%) 69.9 % (45-76); NEUTROPHIL COUNT 6.6 K/uL (1.8-6.4); PLATELET COUNT 338 K/uL (156-360); RBC DIS.WIDTH-CV 14.9 % (11.8-14.6); RBC DIS.WIDTH-SD 41.8 % (39-53); RED BLOOD COUNT 4.71 M/uL (3.80-5.20); WHITE BLOOD COUNT 9.4 K/uL (4.1-10.2)
[2017-03-14 07:06] LABS: ALT (GPT) 25 IU/L (3-49); AST (GOT) 20 IU/L (2-34); CREATININE 0.5 MG/DL (0.6-1.3); GFR ESTIMATE (CALCULATED) > 59 mL/min/; GLUCOSE 243 mg/dL (70-99); TOTAL BILIRUBIN 0.2 MG/DL (0.0-1.0); TOTAL PROTEIN 5.9 G/DL (6.4-8.3); UREA NITROGEN (BUN) 15 mg/dL (9-23)
[2017-03-14 07:15] LABS: ALKALINE PHOSPHATASE 95 IU/L (3-129); CHLORIDE 84 MEQ/L (99-109); SODIUM 159 MEQ/L (136-147)
[2017-03-14 07:47] VITALS: BP 127/84
[2017-03-14 11:09] LABS: ALBUMIN 3.8 g/dL (3.2-4.8); CHLORIDE 102 mEq/L (99-109); POTASSIUM 4.4 mEq/L (3.7-5.4)
[2017-03-14 11:10] LABS: SODIUM 137 mEq/L (136-147)
[2017-03-14 11:13] LABS: TOTAL BILIRUBIN 0.2 mg/dL (0.0-1.0)
[2017-03-14 11:14] LABS: GLUCOSE 428 mg/dL (70-99); TOTAL PROTEIN 6.5 g/dL (6.4-8.3)
[2017-03-14 11:15] LABS: CREATININE 0.8 mg/dL (0.6-1.3); GFR ESTIMATE (CALCULATED) > 59 mL/min/
[2017-03-14 11:16] LABS: UREA NITROGEN (BUN) 18 mg/dL (9-23)
[2017-03-14 11:18] LABS: ALKALINE PHOSPHATASE 129 IU/L (3-129); ALT (GPT) 37 IU/L (3-49); AST (GOT) 29 IU/L (2-34)
[2017-03-14 14:49] VITALS: BP 138/84
[2017-03-14 14:51] VITALS: BP 123/59
[2017-03-14 20:15] VITALS: BP 131/78
[2017-03-14 23:22] VITALS: BP 180/96
[2017-03-15 00:15] VITALS: BP 147/89
[2017-03-15 05:41] VITALS: BP 132/82
[2017-03-15 07:33] VITALS: BP 118/80
[2017-03-15 07:58] LABS: BASOPHIL (%) 0.2 % (0-1); EOSINOPHIL (%) 0 % (0-5); HEMATOCRIT 36.9 % (36.0-46.0); HEMOGLOBIN 11.1 G/DL (11.9-15.5); IMMATURE GRANULOCYTE (%) 2.6 % (0.0-0.7); LYMPHOCYTE (%) 33.9 % (15-42); MCHC 30.1 G/DL (30.0-36.0); MCV 76.4 FL (83-99); MONOCYTE (%) 7.5 % (3-12); MONOCYTE COUNT 0.7 K/uL (0-0.8); NEUTROPHIL (%) 55.8 % (45-76); NEUTROPHIL COUNT 4.9 K/uL (1.8-6.4); PLATELET COUNT 370 K/uL (156-360); RBC DIS.WIDTH-CV 14.8 % (11.8-14.6); RBC DIS.WIDTH-SD 40.9 % (39-53); RED BLOOD COUNT 4.83 M/uL (3.80-5.20); WHITE BLOOD COUNT 8.8 K/uL (4.1-10.2)
[2017-03-15 08:40] LABS: CREATININE 0.5 MG/DL (0.6-1.3); GFR ESTIMATE (CALCULATED) > 59 mL/min/; GLUCOSE 217 mg/dL (70-99); POTASSIUM 4.7 MEQ/L (3.7-5.4); SODIUM 138 MEQ/L (136-147); UREA NITROGEN (BUN) 20 mg/dL (9-23)
[2017-03-15 08:43] LABS: CHLORIDE 100 MEQ/L (99-109)
[2017-03-15 11:12] VITALS: BP 162/91
[2017-03-15 14:51] VITALS: BP 137/82
[2017-03-16] VITALS (7 sets, daily range): BP systolic 113–133; BP diastolic 60–94
[2017-03-16 05:29] LABS: BASOPHIL (%) 0.2 % (0-1); EOSINOPHIL (%) 0.4 % (0-5); HEMATOCRIT 36.2 % (36.0-46.0); HEMOGLOBIN 10.9 G/DL (11.9-15.5); IMMATURE GRANULOCYTE (%) 2.5 % (0.0-0.7); LYMPHOCYTE (%) 45.7 % (15-42); LYMPHOCYTE COUNT 4.5 K/uL (1.0-2.8); MCHC 30.1 G/DL (30.0-36.0); MCV 76.4 FL (83-99); MONOCYTE (%) 7.5 % (3-12); MONOCYTE COUNT 0.7 K/uL (0-0.8); NEUTROPHIL (%) 43.7 % (45-76); NEUTROPHIL COUNT 4.3 K/uL (1.8-6.4); PLATELET COUNT 351 K/uL (156-360); RBC DIS.WIDTH-CV 14.7 % (11.8-14.6); RBC DIS.WIDTH-SD 41.1 % (39-53); RED BLOOD COUNT 4.74 M/uL (3.80-5.20); WHITE BLOOD COUNT 9.8 K/uL (4.1-10.2)
[2017-03-16 06:06] LABS: CHLORIDE 99 MEQ/L (99-109); CREATININE 0.7 MG/DL (0.6-1.3); GFR ESTIMATE (CALCULATED) > 59 mL/min/; SODIUM 138 MEQ/L (136-147); UREA NITROGEN (BUN) 21 mg/dL (9-23)
[2017-03-16 06:09] LABS: GLUCOSE 116 mg/dL (70-99); POTASSIUM 3.4 MEQ/L (3.7-5.4)
[2017-03-17 03:37] VITALS: BP 118/63
[2017-03-17 06:08] LABS: BASOPHIL (%) 0.2 % (0-1); EOSINOPHIL (%) 0.9 % (0-5); EOSINOPHIL COUNT 0.1 K/uL (0-0.3); HEMATOCRIT 36.7 % (36.0-46.0); HEMOGLOBIN 11.4 G/DL (11.9-15.5); IMMATURE GRANULOCYTE (%) 1.9 % (0.0-0.7); LYMPHOCYTE (%) 44.1 % (15-42); LYMPHOCYTE COUNT 4.1 K/uL (1.0-2.8); MCH 23.8 PG (29.0-34.0); MCHC 31.1 G/DL (30.0-36.0); MCV 76.6 FL (83-99); MONOCYTE (%) 6.8 % (3-12); MONOCYTE COUNT 0.6 K/uL (0-0.8); NEUTROPHIL (%) 46.1 % (45-76); NEUTROPHIL COUNT 4.3 K/uL (1.8-6.4); PLATELET COUNT 329 K/uL (156-360); RBC DIS.WIDTH-SD 41.9 % (39-53); RED BLOOD COUNT 4.79 M/uL (3.80-5.20); WHITE BLOOD COUNT 9.4 K/uL (4.1-10.2)
[2017-03-17 06:42] LABS: ALBUMIN 3.5 G/DL (3.2-4.8); ALKALINE PHOSPHATASE 107 IU/L (3-129); ALT (GPT) 41 IU/L (3-49); AST (GOT) 49 IU/L (2-34); CHLORIDE 103 MEQ/L (99-109); CREATININE 0.6 MG/DL (0.6-1.3); GFR ESTIMATE (CALCULATED) > 59 mL/min/; GLUCOSE 130 mg/dL (70-99); POTASSIUM 3.7 MEQ/L (3.7-5.4); SODIUM 140 MEQ/L (136-147); TOTAL BILIRUBIN 0.3 MG/DL (0.0-1.0); TOTAL PROTEIN 6.5 G/DL (6.4-8.3); UREA NITROGEN (BUN) 20 mg/dL (9-23)
[2017-03-17 09:17] VITALS: BP 126/81
[2017-03-17 12:10] VITALS: BP 130/74
[2017-03-17] MEDS ORDERED: CEFTIN500 MG PO (12:13)
[2017-03-17] MEDS ORDERED: DUONEB 2.5-0.5 M3 ML AEROSOL (12:13)
[2017-03-17] MEDS ORDERED: OYSTER SHELL 51 EACH PO (12:14)
[2017-03-17] MEDS ORDERED: DOCUSATE SODIU100 MG PO (12:15)
[2017-03-17] MEDS ORDERED: BISAC-EVAC10 MG PR (12:15)
[2017-03-17] MEDS ORDERED: POLYETHYLENE GL17 GM PO (12:15)
== END 2017-03-17 15:02 | DRG 193 ==
LOC: EME → EDBD 00:23 → EME 00:23 → EDOF 03:10 → 3EAST 03:10 → ENRESERV 03:11 → 3EAST 17:26
PROVIDERS: Emergency Medicine Emergency Medical Services; Hospitalist; Internal Medicine; Student in an Organized Health Care Education/Training Program
DX: J13 Pneumonia due to Streptococcus pneumoniae (principal); J96.01 Acute respiratory failure with hypoxia; J45.41 Moderate persistent asthma with (acute) exacerbation; I10 Essential (primary) hypertension; E78.5 Hyperlipidemia, unspecified; E11.65 Type 2 diabetes mellitus with hyperglycemia; G80.9 Cerebral palsy, unspecified; K21.9 Gastro-esophageal reflux disease without esophagitis; E03.9 Hypothyroidism, unspecified; F25.9 Schizoaffective disorder, unspecified; F31.9 Bipolar disorder, unspecified; F41.9 Anxiety disorder, unspecified; R26.9 Unspecified abnormalities of gait and mobility; E66.01 Morbid (severe) obesity due to excess calories; Z68.42 Body mass index [BMI] 45.0-49.9, adult; Z75.1 Person awaiting admission to adequate facility elsewhere; Z87.01 Personal history of pneumonia (recurrent); Z87.442 Personal history of urinary calculi; Z87.891 Personal history of nicotine dependence; Z99.3 Dependence on wheelchair; Z79.84 Long term (current) use of oral hypoglycemic drugs
CPT/HCPCS: 71045; 71046; 71250; 80048; 80053; 81003; 82948; 83036; 85025; 87502; 90686; 94640; 94640 76; 94760; 94799; 97530 GO; 97530 GP; 99202; 99281; 99285; J0456; J0696; J1650; J1815; J2920; J7030; J7512; J7644; Q0177

== ENCOUNTER 2017-04-25 03:38 | Emergency (ER) | payer OTHER ==
[~2017-04-25] VITALS: Ht 149.9 cm; Wt 95.9 kg
[~2017-04-25 03:38] MED LIST changes: +BISAC-EVAC10 MG PR; +CEFTIN500 MG PO; +DOCUSATE SODIU100 MG PO; +DUONEB 2.5-0.5 M3 ML AEROSOL; +OYSTER SHELL 51 EACH PO; +POLYETHYLENE GL17 GM PO; +SYMBICORT60 INHALA1 IH
[2017-04-25 03:49] LABS: HEMATOCRIT 38.3 % (36.0-46.0); HEMOGLOBIN 11.9 G/DL (11.9-15.5); MCH 23.9 PG (29.0-34.0); MCHC 31.1 G/DL (30.0-36.0); MCV 77.1 FL (83-99); PLATELET COUNT 348 K/uL (156-360); RBC DIS.WIDTH-CV 15.3 % (11.8-14.6); RED BLOOD COUNT 4.97 M/uL (3.80-5.20); WHITE BLOOD COUNT 8.2 K/uL (4.1-10.2)
[2017-04-25 03:51] LABS: CARBON DIOXIDE (BICARBONATE) 31.2 MEQ/L (20-31)
[2017-04-25 03:59] LABS: ALBUMIN 4.1 g/dL (3.2-4.8); CHLORIDE 101 mEq/L (99-109); POTASSIUM 3.8 mEq/L (3.7-5.4); SODIUM 137 mEq/L (136-147)
[2017-04-25 04:00] LABS: MAGNESIUM 1.5 mg/dL (1.3-2.7)
[2017-04-25 04:02] LABS: GLUCOSE 258 mg/dL (70-99); TOTAL PROTEIN 7.1 g/dL (6.4-8.3)
[2017-04-25 04:04] LABS: TOTAL BILIRUBIN 0.2 mg/dL (0.0-1.0)
[2017-04-25 04:05] LABS: ALKALINE PHOSPHATASE 159 IU/L (3-129); PHOSPHORUS 3.4 mg/dL (2.5-4.9)
[2017-04-25 04:06] LABS: CREATININE 0.8 mg/dL (0.6-1.3); GFR ESTIMATE (CALCULATED) > 59 mL/min/
[2017-04-25 04:07] LABS: AST (GOT) 32 IU/L (2-34); UREA NITROGEN (BUN) 12 mg/dL (9-23)
[2017-04-25 04:08] LABS: ALT (GPT) 34 IU/L (3-49)
[2017-04-25 04:09] LABS: LIPASE 19 U/L (1.0-51.0)
[2017-04-25 04:15] LABS: QUANTITATIVE HCG < 4.0 MIU/ML
[2017-04-25 05:04] LABS: BASE EXCESS 0.6 mEq/L (-3 to +3); CARBOXY HGB 0.9 % (0-5); COMMENTS - BLOOD GASES C+; METHEMOGLOBIN 0.7 % (0-1.5); MODE RA; PCO2 44 mm Hg (35-45); PO2 73 mm Hg (80-100); SITE LR; TOTAL RESP RATE 20 resp/min; pH 7.38 (7.35-7.45)
[2017-04-25 06:53] VITALS: BP 136/70
== END 2017-04-25 06:56 | disposition home or self-care (01) ==
LOC: EME → EDBD 03:38 → EME 06:56
PROVIDERS: Emergency Medicine
DX: E11.65 Type 2 diabetes mellitus with hyperglycemia (principal); R51 Headache; G47.30 Sleep apnea, unspecified; I10 Essential (primary) hypertension; E78.5 Hyperlipidemia, unspecified; J45.909 Unspecified asthma, uncomplicated; G80.9 Cerebral palsy, unspecified; F32.9 Major depressive disorder, single episode, unspecified; K21.9 Gastro-esophageal reflux disease without esophagitis; Z87.891 Personal history of nicotine dependence; F41.9 Anxiety disorder, unspecified; Z88.2 Allergy status to sulfonamides; Z88.5 Allergy status to narcotic agent; Z91.040 Latex allergy status
CPT/HCPCS: 36600; 80053; 81003; 82010; 82803; 82948; 83690; 83735; 84100; 84702; 85027; 94640; 99281; 99284; J7030

== ENCOUNTER 2017-06-22 17:40 | Emergency (ER) | payer OTHER ==
[~2017-06-22] VITALS: Ht 124.5 cm; Wt 104.5 kg
[2017-06-22] MEDS ORDERED: FLEXERIL10 MG PO (21:40)
[2017-06-22] MEDS ORDERED: NAPROSYN500 MG PO (21:40)
[2017-06-22 22:02] VITALS: BP 129/75
== END 2017-06-22 22:03 | disposition home or self-care (01) ==
LOC: EME 17:40
DX: M25.561 Pain in right knee (principal); G80.9 Cerebral palsy, unspecified; R60.9 Edema, unspecified; Z99.3 Dependence on wheelchair; I10 Essential (primary) hypertension; E11.9 Type 2 diabetes mellitus without complications; J45.909 Unspecified asthma, uncomplicated; F32.9 Major depressive disorder, single episode, unspecified; Z88.5 Allergy status to narcotic agent; Z88.2 Allergy status to sulfonamides; Z88.1 Allergy status to other antibiotic agents; Z88.6 Allergy status to analgesic agent; Z91.040 Latex allergy status; Z91.09 Other allergy status, other than to drugs and biological substances
CPT/HCPCS: 73564; 99281; 99283; J1885

== ENCOUNTER 2017-07-10 16:08 | Emergency (ER) | payer OTHER ==
[~2017-07-10] VITALS: Ht 149.9 cm; Wt 100.9 kg
[2017-07-10 18:50] VITALS: BP 148/98
== END 2017-07-10 18:52 | disposition home or self-care (01) ==
LOC: EME 16:08
DX: M25.561 Pain in right knee (principal); M25.562 Pain in left knee; Z91.81 History of falling; G80.9 Cerebral palsy, unspecified; K21.9 Gastro-esophageal reflux disease without esophagitis; J45.909 Unspecified asthma, uncomplicated; I10 Essential (primary) hypertension; E11.9 Type 2 diabetes mellitus without complications; E78.5 Hyperlipidemia, unspecified; F41.9 Anxiety disorder, unspecified; F32.9 Major depressive disorder, single episode, unspecified; F31.9 Bipolar disorder, unspecified; Z87.442 Personal history of urinary calculi; Z91.040 Latex allergy status; Z88.5 Allergy status to narcotic agent; Z88.2 Allergy status to sulfonamides; Z88.1 Allergy status to other antibiotic agents; Z88.6 Allergy status to analgesic agent; Z88.8 Allergy status to other drugs, medicaments and biological substances
CPT/HCPCS: 73564; 99281; 99284

== ENCOUNTER 2017-10-27 00:09 | Emergency (ER) | payer OTHER ==
[~2017-10-27] VITALS: Ht 149.9 cm; Wt 115.1 kg
[2017-10-27 01:59] LABS: BASOPHIL (%) 0.4 % (0-1); EOSINOPHIL (%) 1.8 % (0-5); EOSINOPHIL COUNT 0.1 K/uL (0-0.3); HEMATOCRIT 34.2 % (36.0-46.0); HEMOGLOBIN 10.9 G/DL (11.9-15.5); IMMATURE GRANULOCYTE (%) 0.8 % (0.0-0.7); LYMPHOCYTE (%) 36.8 % (15-42); LYMPHOCYTE COUNT 2.8 K/uL (1.0-2.8); MCH 24.2 PG (29.0-34.0); MCHC 31.9 G/DL (30.0-36.0); MCV 75.8 FL (83-99); MONOCYTE (%) 6.7 % (3-12); MONOCYTE COUNT 0.5 K/uL (0-0.8); NEUTROPHIL (%) 53.5 % (45-76); NEUTROPHIL COUNT 4.1 K/uL (1.8-6.4); PLATELET COUNT 307 K/uL (156-360); RBC DIS.WIDTH-CV 14.5 % (11.8-14.6); RBC DIS.WIDTH-SD 39.2 % (39-53); RED BLOOD COUNT 4.51 M/uL (3.80-5.20); WHITE BLOOD COUNT 7.7 K/uL (4.1-10.2)
[2017-10-27 02:09] LABS: CHLORIDE 100 mEq/L (99-109); POTASSIUM 3.9 mEq/L (3.7-5.4); SODIUM 137 mEq/L (136-147)
[2017-10-27 02:11] LABS: GLUCOSE 217 mg/dL (70-99)
[2017-10-27 02:15] LABS: CREATININE 0.8 mg/dL (0.6-1.3); GFR ESTIMATE (CALCULATED) > 59 mL/min/; UREA NITROGEN (BUN) 14 mg/dL (9-23)
[2017-10-27 02:23] LABS: TROP-I INTERPRETATION NEGATIVE; TROPONIN-I < 0.01 ng/mL (0.0-0.30)
[2017-10-27 04:20] LABS: TROP-I INTERPRETATION NEGATIVE; TROPONIN-I < 0.01 ng/mL (0.0-0.30)
[2017-10-27] MEDS ORDERED: ZITHROMAX250 MG PO (05:51)
[2017-10-27 05:57] VITALS: BP 131/84
== END 2017-10-27 05:57 | disposition home or self-care (01) ==
LOC: EME → EDBD 00:09 → EME 00:09
PROVIDERS: Emergency Medicine
DX: R07.89 Other chest pain (principal); I10 Essential (primary) hypertension; E78.5 Hyperlipidemia, unspecified; K21.9 Gastro-esophageal reflux disease without esophagitis; E11.9 Type 2 diabetes mellitus without complications; J45.909 Unspecified asthma, uncomplicated; G80.9 Cerebral palsy, unspecified; E03.9 Hypothyroidism, unspecified; F32.9 Major depressive disorder, single episode, unspecified; F41.9 Anxiety disorder, unspecified; F31.9 Bipolar disorder, unspecified; Z87.442 Personal history of urinary calculi; Z91.040 Latex allergy status; Z88.1 Allergy status to other antibiotic agents; Z88.2 Allergy status to sulfonamides; Z88.5 Allergy status to narcotic agent; Z88.6 Allergy status to analgesic agent; Z88.8 Allergy status to other drugs, medicaments and biological substances
CPT/HCPCS: 71045; 71046; 80048; 84484; 85025; 85379; 93005; 99281; 99285; J7030